=== PATIENT | female | born 1960 | race African-American/Black ===

== ENCOUNTER 2018-10-08 05:30 | Inpatient (IN) | payer OTHER ==
[2018-10-08] VITALS (7 sets, daily range): BP systolic 105–173; BP diastolic 87–116; PULSE 49–65; RESP 11–22; Ht 162.6 cm; Wt 92.6 kg
[~2018-10-08] VITALS: Ht 162.6 cm; Wt 92.6 kg
[2018-10-08] MEDS ORDERED: morphine 2 MG INJ IV STA (05:39)
[2018-10-08] MEDS ORDERED: BISACODYL (EC) 5 MG TAB PO PRN (06:00)
[2018-10-08] MEDS ORDERED: NACL 0.9% 3 ML SYG IV SCH (06:00)
[2018-10-08] MEDS ORDERED: ONDANSETRON 4 MG INJ IV PRN (06:00)
[2018-10-08] MEDS ORDERED: DOCUSATE SODIUM 100 MG CAP PO PRN (06:00)
[2018-10-08] MEDS ORDERED: ACETAMINOPHEN 325 MG TAB PO PRN (06:00)
--- NOTE | 2018-10-08 06:46 | HP ---
Date/Time of Note Date/Time of Note DATE: 10/08/18 TIME: 06:12 Assessment/Plan VTE Prophylaxis SCD applied (from Nsg): Yes Pharmacological prophylaxis: NA/contraindicated Pharm contraindication: low risk/ambulating Assessment/Plan Hospital Course This is a 58-year-old female who the patient admitted to the telemetry for probably transfer to the ICU #1 pacemaker/defibrillator malfunction: Her defibrillator has gone off multiple times according to her. She apparently had 2 episodes of it firing at the transfer facility at [facility] and she was still sent via ambulance to [facility] and in route she had multiple episodes of firing as well as 2 episodes of it firing at [facility]. We will give him morphine as needed for pain. We will check a stat EKG, troponins x3, will consult cardiology . We will transfer to the ICU #2 #2 TIA: Patient presented with left-sided facial weakness and right-sided weakness: At the current time she states that her symptoms have largely resolved. Her horseradish maker strength of the right hand is less than the left. CT of the brain did not show any acute abnormalities. We will check a CBC BMP lipid level hemoglobin A 1C, TSH. patient unfortunately will not be able to have an MRI of the brain secondary to the fact that she has a defibrillator pacemaker. Will consult neurology . Will check an echocardiogram a carotid ultrasound #3 History of stroke: She did not have any residual deficits. Her current symptoms have resolved aside from her right hand horseradish maker strength. #4Hypertension: We will need to confirm patient's home medications and resume #4 #5 hypothyroidism: We will need to check a TSH and confirm her home levothyroxine dose and resume #6 schizophrenia: Confirm her home medications and resume them #7 hyperlipidemia: Check lipid panel, will need to check if she is on a statin # 8asthma: PRN inhalers #9 history of seizure: We will need to confirm patient home medications and resume #10 history of systolic CHF: Currently she does not appear to volume overload. Will check an echocardiogram. In the setting of #1. #11 DVT GI prophylaxis: SCDs, no GI prophylaxis indicated HPI/ROS Admit Date/Time Admit Date/Time Oct 08, 2018 at 05:30 Hx of Present Illness Chief complaint: Facial droop and weakness Please note that this patient was transferred from [facility] secondary to insurance purposes. Patient based on what I gather from the paramedics as well as from the patient prior to her being transferred from [facility] she apparently had her AICD firing twice. She reported that the ED physician at the hospital did do an EKG and gave her morphine and said that she is stable for transfer. In route patient's ICD fired multiple times according to the paramedics and the patient. She arrived in pain. While being taken to the telemetry floor she also had a repeat episode of the pacemaker firing. This is a 58-year-old female who presented to [facility] with complaints of left-sided sided facial droop with slurred speech. Patient arrived at approximately 11:26 PM and her last known well time was 30 minutes prior to that. Patient also had complained of right upper and lower extremity weakness and she was very tearful when she was given her history at the emerge ncy department. Patient had a CT of the brain that was performed that did not show any acute abnormalities. She was seen by the telemetry neurologist. To the telemetry neurologist she was not very clear and when her symptoms started but she did report that when she woke up she felt her face was droopy and the right side was weak and her called ambulance. And prior to that when she went to bed she could not eat her dinner properly due to swallowing problems. Per the recommendations of the telemetry neurologist she was not considered a TPA candidate. It was recommended for her to be admitted for further work-up including MRI of the brain. She has a history of schizophrenia and she was diagnosed with conversion disorder 2 months ago at [facility]. Patient's vitals on presentation were blood pressure 163/100 pulse 58 respiration 16 SPO2 98% on room air. Of note patient does report that she a few days ago was at [facility] where she had her pacemaker leads adjusted, and battery replaced replaced. At the bedside she does report left arm pain and she reports that her AICD has continued to fire. Pertinent laboratory findings: Her NIH SS score was less than 4. CT of the brain without contrast did not show any acute sign of bleed. EKG showed sinus rhythm at approximately 65 bpm Allergies: Sulfa, codeine, nitro Medications: See MAR ROS Const: As per HPI Eyes : No pain discharge or redness or change in visual acuity ENT: No pain, sore throat, congestion, congestion, dysphagia or discharge Respiratory: No shortness of breath, cough, sputum, wheezing, or pleuritic pain Cardiovascular: As per HPI GI : no change in appetite, abdominal pain, nausea, vomiting, diarrhea, constipation, or change in the color his stool Genitourinary: No dysuria, hematuria, flank pain , discharge or CVA tenderness Musculoskeletal: No joint pain, back pain, neck pain, restricted range of motion in neck or joints Skin: No rash, bruising or hives Neuro: As per HPI Endocrine: No polyuria, polydipsia, temperature intolerance Psych: No hallucination, depression, anxiety or suicidal ideation PMH/Family/Social Past Medical History Hypertension Hypothyroidism Schizophrenia Hyperlipidemia Asthma Syncope Renal insufficiency History of stroke Cardiac defibrillator/pacemaker History of seizure Hyperlipidemia Chronic systolic heart failure Medications Current Medications IV Flush (NS 3 ml) 3 ml PER PROTOCOL IV ; Start 10/08/18 at 06:00 Ondansetron HCl (Zofran Inj) 4 mg Q6H PRN IV NAUSEA/VOMITING; Start 10/08/18 at 06:00 Acetaminophen (Tylenol Tab) 650 mg Q6H PRN PO .PAIN 1-3 OR TEMP; Start 10/08/18 at 06:00 Morphine Sulfate (morphine) 2 mg Q4H PRN IV .PAIN 7-10; Start 10/08/18 at 06:00 Docusate Sodium (Colace) 100 mg Q12H PRN PO .CONSTIPATION; Start 10/08/18 at 06:00 Bisacodyl (Dulcolax) 5 mg DAILY PRN PO .CONSTIPATION; Start 10/08/18 at 06:00 Coded Allergies: Sulfa (Sulfonamide Antibiotics) (Verified Allergy, Unknown, 10/08/18) codeine (Verified Allergy, Unknown, 10/08/18) Uncoded Allergies: nitro (Allergy, Unknown, 10/08/18) Past Surgical History Pacemaker/defibrillator placement Family History Significant Family History: no pertinent family hx Social History Smoking Status: Former smoker Exam/Review of Systems Vital Signs Vitals Vital Signs Date Temp Pulse Resp B/P (MAP) Pulse Ox O2 O2 Flow FiO2 Time Delivery Rate 10/08/18 98.3 59 20 173/87 98 Nasal 3.0 05:48 (115) Cannula Exam Exam General: Patient arrived on the gurney via the paramedics, she is tearful as she does report pain on the left side of her chest she states that her defibrillator has been firing. HEENT: Atraumatic, normocephalic. The pupils are equal, round and reactive. Extraocular motor are intact Neck: Supple with full range of motion. No rigidity or meningismus Chest: Left chest wall gauze/Band-Aid covering her left-sided pacemaker. Lungs: Clear to auscultation bilaterally no crackles rales or wheezing Heart: Normal S1-S2, Regular rhythm and rate. No murmur, S3, or S4 Abdomen: Soft , nontender, nondistended , bowel sounds are present. No guarding no rebound tenderness , No masses or organomegaly. No costovertebral temporal angle mass Extremities: Normal to inspection, no edema no cyanosis Neurologic: Normal mental status, speech normal, cranial nerves II through XII are intact, motor and sensory are intact, no focal weakness Psych: Tearful ANA MARIA BENEDICT Oct 08, 2018 06:22
[2018-10-08] MEDS: morphine 2 MG INJ IV PRN ×2 (07:23→12:23)
--- NOTE | 2018-10-08 09:44 | PN ---
Date/Time of Note Date/Time of Note DATE: 10/08/18 TIME: 09:39 Assessment/Plan VTE Prophylaxis SCD applied (from Nsg): Yes Pharmacological prophylaxis: other Assessment/Plan Hospital Course S: Patient seen by neurology team earlier this morning. Asking when she can go home, still waiting for the interrogation company and cardiology to come see the patient. O: VS- see below PE: General: Sitting up in bed, answering questions properly, no acute distress HEENT: Atraumatic, normocephalic. The pupils are equal, round and reactive. Extraocular motor are intact Neck: Supple with full range of motion. No rigidity or meningismus Chest: Left chest wall gauze/Band-Aid covering her left-sided pacemaker. Lungs: Clear to auscultation bilaterally no crackles rales or wheezing Heart: Normal S1-S2, Regular rhythm and rate. No murmur, S3, or S4 Abdomen: Soft , nontender, nondistended , bowel sounds are present. No guarding no rebound tenderness , No masses or organomegaly. Extremities: Normal to inspection, no edema no cyanosis Neurologic: No present focal deficits A/P: 58-year-old female who the patient transferred because of possible strokelike symptoms and AICD firing. #1 pacemaker/defibrillator malfunction: Her defibrillator has gone off multiple times according to her. She apparently had 2 episodes of it firing at the transfer facility at [facility] and she was still sent via ambulance to [facility] and in route she had multiple episodes of firing as well as 2 episodes of it firing at [facility]. -Monitor heart rates, follow-up troponin test. -Again waiting for interrogation to be performed, and also cardiology consult, follow both recommendations #2 possible TIA: Patient presented with left-sided facial weakness and right- sided weakness: At the current time she states that her symptoms have largely resolved. On admission however her photography sales associate strength of the right hand was less than the left. CT of the brain did not show any acute abnormalities. -Continue to allow for permissive hypertension, follow-up lipid level, hemoglobin A 1C, TSH - patient unfortunately will not be able to have an MRI of the brain secondary to the fact that she has a defibrillator pacemaker. -Follow-up further recommendations from neurology . -Follow-up echocardiogram a carotid ultrasound #3 History of prior stroke: She did not have any residual deficits apparently at that time. Her current symptoms have resolved aside from her right hand photography sales associate strength. -See above, consider OT and PT consult as well #4Hypertension: For now allow for permissive hypertension, also we will need to confirm patient's home medications and resume #4 #5 hypothyroidism: Follow-up TSH and confirm her home levothyroxine dose and resume #6 schizophrenia: Confirm her home medications and resume them #7 hyperlipidemia: Follow-up lipid panel, will need to check if she is on a statin # 8asthma: PRN inhalers #9 history of seizure: We will need to confirm patient home medications and resume #10 history of systolic CHF: Currently she does not appear to volume overload. -Again follow-up echocardiogram. In the setting of #1. #11 DVT GI prophylaxis: SCDs, no GI prophylaxis indicated Critical care time spent on patient care today equals 45 minutes. Result Diagram: 10/08/18 0639 10/08/18 0639 Results 24hrs Laboratory Tests Test 10/08/18 06:39 White Blood Count 7.1 Red Blood Count 4.40 Hemoglobin 12.6 Hematocrit 38.3 Mean Corpuscular Volume 87.0 Mean Corpuscular Hemoglobin 28.6 L Mean Corpuscular Hemoglobin Concent 32.9 Red Cell Distribution Width 12.4 Platelet Count 126 L Mean Platelet Volume 11.3 H Immature Granulocytes % 0.300 Neutrophils % 53.3 Lymphocytes % 35.6 Monocytes % 5.7 Eosinophils % 4.5 Basophils % 0.6 Nucleated Red Blood Cells % 0.0 Immature Granulocytes # 0.020 Neutrophils # 3.8 Lymphocytes # 2.5 Monocytes # 0.4 Eosinophils # 0.3 Basophils # 0.0 Nucleated Red Blood Cells # 0.0 Sodium Level 144 Potassium Level 3.7 Chloride Level 104 Carbon Dioxide Level 32 H Anion Gap 8 Blood Urea Nitrogen 13 Creatinine 0.91 Est Glomerular Filtrat Rate mL/min > 60 Glucose Level 98 Hemoglobin A1c 4.9 Calcium Level 9.3 Magnesium Level 1.7 Total Bilirubin 0.8 Direct Bilirubin 0.00 Indirect Bilirubin 0.8 Aspartate Amino Transf (AST/SGOT) 20 Alanine Aminotransferase (ALT/SGPT) 22 Alkaline Phosphatase 57 Creatine Kinase 85 Creatine Kinase Index 0.7 Creatinine Kinase MB (Mass) 0.57 Troponin I < 0.012 Total Protein 6.9 Albumin 4.1 Globulin 2.80 Albumin/Globulin Ratio 1.46 Triglycerides Level 114 Cholesterol Level 132 LDL Cholesterol, Calculated 64 HDL Cholesterol 45 Cholesterol/HDL Ratio 2.9 Thyroid Stimulating Hormone (TSH) 1.500 Exam/Review of Systems Exam Vitals Vital Signs Date Temp Pulse Resp B/P (MAP) Pulse Ox O2 O2 Flow FiO2 Time Delivery Rate 10/08/18 50 16 139/93 100 Room Air 09:00 (108) 10/08/18 98.2 08:00 10/08/18 3.0 05:48 Results Results 24hrs Laboratory Tests Test 10/08/18 06:39 White Blood Count 7.1 Red Blood Count 4.40 Hemoglobin 12.6 Hematocrit 38.3 Mean Corpuscular Volume 87.0 Mean Corpuscular Hemoglobin 28.6 L Mean Corpuscular Hemoglobin Concent 32.9 Red Cell Distribution Width 12.4 Platelet Count 126 L Mean Platelet Volume 11.3 H Immature Granulocytes % 0.300 Neutrophils % 53.3 Lymphocytes % 35.6 Monocytes % 5.7 Eosinophils % 4.5 Basophils % 0.6 Nucleated Red Blood Cells % 0.0 Immature Granulocytes # 0.020 Neutrophils # 3.8 Lymphocytes # 2.5 Monocytes # 0.4 Eosinophils # 0.3 Basophils # 0.0 Nucleated Red Blood Cells # 0.0 Sodium Level 144 Potassium Level 3.7 Chloride Level 104 Carbon Dioxide Level 32 H Anion Gap 8 Blood Urea Nitrogen 13 Creatinine 0.91 Est Glomerular Filtrat Rate mL/min > 60 Glucose Level 98 Hemoglobin A1c 4.9 Calcium Level 9.3 Magnesium Level 1.7 Total Bilirubin 0.8 Direct Bilirubin 0.00 Indirect Bilirubin 0.8 Aspartate Amino Transf (AST/SGOT) 20 Alanine Aminotransferase (ALT/SGPT) 22 Alkaline Phosphatase 57 Creatine Kinase 85 Creatine Kinase Index 0.7 Creatinine Kinase MB (Mass) 0.57 Troponin I < 0.012 Total Protein 6.9 Albumin 4.1 Globulin 2.80 Albumin/Globulin Ratio 1.46 Triglycerides Level 114 Cholesterol Level 132 LDL Cholesterol, Calculated 64 HDL Cholesterol 45 Cholesterol/HDL Ratio 2.9 Thyroid Stimulating Hormone (TSH) 1.500 Medications Medication Current Medications IV Flush (NS 3 ml) 3 ml PER PROTOCOL IV ; Start 10/08/18 at 06:00 Ondansetron HCl (Zofran Inj) 4 mg Q6H PRN IV NAUSEA/VOMITING; Start 10/08/18 at 06:00 Acetaminophen (Tylenol Tab) 650 mg Q6H PRN PO .PAIN 1-3 OR TEMP; Start 10/08/18 at 06:00 Morphine Sulfate (morphine) 2 mg Q4H PRN IV .PAIN 7-10 Last administered on 10/08/18at 07:23; Admin Dose 2 MG; Start 10/08/18 at 06:00 Docusate Sodium (Colace) 100 mg Q12H PRN PO .CONSTIPATION; Start 10/08/18 at 06:00 Bisacodyl (Dulcolax) 5 mg DAILY PRN PO .CONSTIPATION; Start 10/08/18 at 06:00 Aspirin (Halfprin) 162 mg ONCE ONCE PO ; Start 10/08/18 at 10:00; Stop 10/08/18 at 10:01 JOSUÉ HOPPER Oct 08, 2018 09:44
[2018-10-08] MEDS ORDERED: ASPIRIN (EC) 81 MG TAB PO ONE (10:00)
--- NOTE | 2018-10-08 10:15 | CONSI ---
Assessment/Plan Assessment/Plan Assessment/Plan (Recall) 58 F c/ reported Hx of prior stroke and multiple other comorbidities, who presents for evaluation of recurrent transient face weakness and other symptoms. The clinical picture is most ominously concerning for TIA. Recrudescence is additionally considered.. Seizure is less likely.. OSH Head CT was reportedly unremarkable MRI brain is presently contraindicated. LDL 64, A1C 4.9% P: Agree w/ asa daily for secondary prevention Lipitor only in the short term (LDL is at goal) Add Echo, CUS, UDS, RPR BP control and other medical management per primary Will follow Consultation Date/Type/Reason Admit Date/Time Oct 08, 2018 at 05:30 Type of Consult Neurology Reason for Consultation face weakness Requesting Provider: ANA MARIA BENEDICT Date/Time of Note DATE: 10/08/18 TIME: 10:07 Hx of Present Illness Please note that this patient was transferred from [facility] secondary to insurance purposes. Patient based on what I gather from the paramedics as well as from the patient prior to her being transferred from [facility] she apparently had her AICD firing twice. She reported that the ED physician at the hospital did do an EKG and gave her morphine and said that she is stable for transfer. In route patient's ICD fired multiple times according to the paramedics and the patient. She arrived in pain. While being taken to the telemetry floor she also had a repeat episode of the pacemaker firing. This is a 58-year-old female who presented to [facility] with complaints of left-sided sided facial droop with slurred speech. Patient arrived at approximately 11:26 PM and her last known well time was 30 minutes prior to that. Patient also had complained of right upper and lower extremity weakness and she was very tearful when she was given her history at the emergency department. Patient had a CT of the brain that was performed that did not show any acute abnormalities. She was seen by the telemetry neurologist. To the telemetry neurologist she was not very clear and when her symptoms started but she did report that when she woke up she felt her face was droopy and the right side was weak and her called ambulance. And prior to that when she went to bed she could not eat her dinner properly due to swallowing problems. Per the recommendations of the telemetry neurologist she was not considered a TPA candidate. It was recommended for her to be admitted for further work-up including MRI of the brain. She has a history of schizophrenia and she was diagnosed with conversion disorder 2 months ago at [facility]. Patient's vitals on presentation were blood pressure 163/100 pulse 58 respiration 16 SPO2 98% on room air. Of note patient does report that she a few days ago was at [facility] where she had her pacemaker leads adjusted, and battery replaced replaced. At the bedside she does report left arm pain and she reports that her AICD has continued to fire. Pertinent laboratory findings: Her NIH SS score was less than 4. CT of the brain without contrast did not show any acute sign of bleed. EKG showed sinus rhythm at approximately 65 bpm 12 PT ROS ow neg Objective Exam Vitals Vital Signs Date Temp Pulse Resp B/P (MAP) Pulse Ox O2 O2 Flow FiO2 Time Delivery Rate 10/08/18 50 16 139/93 100 Room Air 09:00 (108) 10/08/18 98.2 08:00 10/08/18 3.0 05:48 Exam PE: Gen Appearance: No Apparent Distress HEENT: Normocephalic Cardiovascular: Regular rate Abdomen: Soft Extremities: Dry NE: The patient was alert and oriented to person and hospital, though she did not know which one. Language was normal. Fund of knowledge was adequate. Pupils were equal and reactive to light. There was no afferent pupillary defect. Visual becker were normal. Funduscopic examination was limited. Extra-ocular movements were full. Ptosis was absent. There was no nystagmus. Facial sensation was normal. Face was symmetric with normal strength. Hearing was intact. Palate movements were normal. Neck strength was normal. There was normal tongue bulk and speed of movement. Tone was normal. Muscle bulk was normal. I did not see fasciculations. R arm was mildly weak. Vibration sensation was reduced distally. Temperature and pinprick sensation was normal. Rapid alternating movements were normal. There was no dysmetria. There was no intention tremor. Gait was deferred due to bedrest. Arm and leg reflexes were symmetric. Belle's sign was absent. Plantar responses were flexor. Results Result Diagram: 10/08/18 0639 10/08/18 0639 Results 24hrs Laboratory Tests Test 10/08/18 06:39 White Blood Count 7.1 Red Blood Count 4.40 Hemoglobin 12.6 Hematocrit 38.3 Mean Corpuscular Volume 87.0 Mean Corpuscular Hemoglobin 28.6 L Mean Corpuscular Hemoglobin Concent 32.9 Red Cell Distribution Width 12.4 Platelet Count 126 L Mean Platelet Volume 11.3 H Immature Granulocytes % 0.300 Neutrophils % 53.3 Lymphocytes % 35.6 Monocytes % 5.7 Eosinophils % 4.5 Basophils % 0.6 Nucleated Red Blood Cells % 0.0 Immature Granulocytes # 0.020 Neutrophils # 3.8 Lymphocytes # 2.5 Monocytes # 0.4 Eosinophils # 0.3 Basophils # 0.0 Nucleated Red Blood Cells # 0.0 Sodium Level 144 Potassium Level 3.7 Chloride Level 104 Carbon Dioxide Level 32 H Anion Gap 8 Blood Urea Nitrogen 13 Creatinine 0.91 Est Glomerular Filtrat Rate mL/min > 60 Glucose Level 98 Hemoglobin A1c 4.9 Calcium Level 9.3 Magnesium Level 1.7 Total Bilirubin 0.8 Direct Bilirubin 0.00 Indirect Bilirubin 0.8 Aspartate Amino Transf (AST/SGOT) 20 Alanine Aminotransferase (ALT/SGPT) 22 Alkaline Phosphatase 57 Creatine Kinase 85 Creatine Kinase Index 0.7 Creatinine Kinase MB (Mass) 0.57 Troponin I < 0.012 Total Protein 6.9 Albumin 4.1 Globulin 2.80 Albumin/Globulin Ratio 1.46 Triglycerides Level 114 Cholesterol Level 132 LDL Cholesterol, Calculated 64 HDL Cholesterol 45 Cholesterol/HDL Ratio 2.9 Thyroid Stimulating Hormone (TSH) 1.500 Past Medical History reviewed Medications Current Medications IV Flush (NS 3 ml) 3 ml PER PROTOCOL IV ; Start 10/08/18 at 06:00 Ondansetron HCl (Zofran Inj) 4 mg Q6H PRN IV NAUSEA/VOMITING; Start 10/08/18 at 06:00 Acetaminophen (Tylenol Tab) 650 mg Q6H PRN PO .PAIN 1-3 OR TEMP; Start 10/08/18 at 06:00 Morphine Sulfate (morphine) 2 mg Q4H PRN IV .PAIN 7-10 Last administered on 10/08/18at 07:23; Admin Dose 2 MG; Start 10/08/18 at 06:00 Docusate Sodium (Colace) 100 mg Q12H PRN PO .CONSTIPATION; Start 10/08/18 at 06:00 Bisacodyl (Dulcolax) 5 mg DAILY PRN PO .CONSTIPATION; Start 10/08/18 at 06:00 Allergies: Coded Allergies: Sulfa (Sulfonamide Antibiotics) (Verified Allergy, Unknown, 10/08/18) codeine (Verified Allergy, Unknown, 10/08/18) Uncoded Allergies: nitro (Allergy, Unknown, 10/08/18) Social History Smoking Status: Former smoker PAT YU Oct 08, 2018 10:15
[2018-10-08] MEDS ORDERED: ATORVASTATIN 40 MG TAB PO SCH (21:00)
--- NOTE | 2018-10-09 13:51 | DS ---
Date/Time of Note Date/Time of Note DATE: 10/09/18 TIME: 13:50 Discharge Summary Admission/Discharge Info Admit Date/Time Oct 08, 2018 at 05:30 Discharge Date/Time Oct 08, 2018 at 12:50 Discharge Diagnosis Patient left AMA Patient Condition: Critical Hospital Course S: Patient seen by neurology team earlier this morning. Asking when she can go home, still waiting for the interrogation company and cardiology to come see the patient. O: VS- see below PE: General: Sitting up in bed, answering questions properly, no acute distress HEENT: Atraumatic, normocephalic. The pupils are equal, round and reactive. Extraocular motor are intact Neck: Supple with full range of motion. No rigidity or meningismus Chest: Left chest wall gauze/Band-Aid covering her left-sided pacemaker. Lungs: Clear to auscultation bilaterally no crackles rales or wheezing Heart: Normal S1-S2, Regular rhythm and rate. No murmur, S3, or S4 Abdomen: Soft , nontender, nondistended , bowel sounds are present. No guarding no rebound tenderness , No masses or organomegaly. Extremities: Normal to inspection, no edema no cyanosis Neurologic: No present focal deficits A/P: 58-year-old female who the patient transferred because of possible strokelike symptoms and AICD firing. #1 pacemaker/defibrillator malfunction: Her defibrillator has gone off multiple times according to her. She apparently had 2 episodes of it firing at the transfer facility at [facility] and she was still sent via ambulance to [facility] and in route she had multiple episodes of firing as well as 2 episodes of it firing at [facility]. -Monitor heart rates, follow-up troponin test. -Again waiting for interrogation to be performed, and also cardiology consult, follow both recommendations #2 possible TIA: Patient presented with left-sided facial weakness and right- sided weakness: At the current time she states that her symptoms have largely resolved. On admission however her field representative/health education strength of the right hand was less than the left. CT of the brain did not show any acute abnormalities. -Continue to allow for permissive hypertension, follow-up lipid level, hemoglobin A 1C, TSH - patient unfortunately will not be able to have an MRI of the brain secondary to the fact that she has a defibrillator pacemaker. -Follow-up further recommendations from neurology . -Follow-up echocardiogram a carotid ultrasound #3 History of prior stroke: She did not have any residual deficits apparently at that time. Her current symptoms have resolved aside from her right hand field representative/health education strength. -See above, consider OT and PT consult as well #4Hypertension: For now allow for permissive hypertension, also we will need to confirm patient's home medications and resume #4 #5 hypothyroidism: Follow-up TSH and confirm her home levothyroxine dose and resume #6 schizophrenia: Confirm her home medications and resume them #7 hyperlipidemia: Follow-up lipid panel, will need to check if she is on a statin # 8asthma: PRN inhalers #9 history of seizure: We will need to confirm patient home medications and resume #10 history of systolic CHF: Currently she does not appear to volume overload. -Again follow-up echocardiogram. In the setting of #1. #11 DVT GI prophylaxis: SCDs, no GI prophylaxis indicated Critical care time spent on patient care today equals 45 minutes. Primary Care Provider Not On Staff Doctor Time spent on discharge: < 30 minutes JOSUÉ HOPPER Oct 09, 2018 13:51
--- NOTE | 2018-10-10 15:44 | RADRPT ---
Vent Rate: 51 bpm RR Interval: 1178 msec MO Interval: 196 msec QRS Duration: 110 msec QT Interval: 475 msec QTC Interval: 438 msec P-R-T [place]: 53 - -21 - 21 degrees Atrial-sensed ventricular-paced complexes...other complexes also detected Incomplete left bundle branch block...QRSd>110mS, terminal axis(-90,-1) Left ventricular hypertrophy...multiple voltage criteria Electronically Signed By: Herber Meza
== END 2018-10-08 12:50 | disposition left against medical advice (07) | DRG 313 ==
LOC: TEL 05:30 → ICU 07:06
PROVIDERS: ADMIT Family Medicine; ATTEND Hospitalist
DX: R07.9 Chest pain, unspecified (principal); G45.9 Transient cerebral ischemic attack, unspecified; R29.810 Facial weakness; R53.1 Weakness; Z86.73 Personal history of transient ischemic attack (TIA), and cerebral infarction without residual deficits; I10 Essential (primary) hypertension; E03.9 Hypothyroidism, unspecified; F20.9 Schizophrenia, unspecified; E78.5 Hyperlipidemia, unspecified; J45.909 Unspecified asthma, uncomplicated; R47.81 Slurred speech; M79.602 Pain in left arm; Z95.810 Presence of automatic (implantable) cardiac defibrillator
CPT/HCPCS: 71045; 80053; 80061; 80307; 82550; 82553; 83036; 83735; 84443; 84484; 85025; 86592; 93005; 97162; J2270